=== PATIENT | male | born 1995 | race African-American/Black ===

== ENCOUNTER → 2019-02-04 | Outpatient (REF) | payer OTHER ==
[2019-02-04 16:32] LABS: BASO % 0.5 % (0.0-1.0); EOS # 0.1 10^3/uL (0.0-0.5); HEMATOCRIT 47.6 % (42.0-52.0); HEMOGLOBIN 15.4 g/dl (13.5-17.5); LYMPH # 1.4 10^3/uL (1.5-5.0); LYMPH % 23.9 % (24.0-44.0); MEAN CORPUSCULAR HEMOGLOBIN 29.4 pg (27.0-33.0); MEAN CORPUSCULAR HGB CONC 32.4 g/dl (32.0-36.5); MONO # 0.5 10^3/uL (0.0-0.8); MONO % 8.6 % (0.0-5.0); NEUTROPHILS # 3.8 10^3/uL (1.5-8.5); NEUTROPHILS % 64.8 % (36.0-66.0); PLATELET COUNT, AUTOMATED 316 10^3/uL (150-450); RED BLOOD COUNT 5.23 10^6/uL (4.30-6.10); WHITE BLOOD COUNT 5.9 10^3/uL (4.0-10.0)
[2019-02-04 16:47] LABS: ALBUMIN 4.3 GM/DL (3.2-5.2); ALT/SGPT 51 U/L (12-78); BILIRUBIN,TOTAL 0.4 MG/DL (0.2-1.0); BLOOD UREA NITROGEN 13 MG/DL (7-18); CALCIUM LEVEL 9.4 MG/DL (8.5-10.1); CARBON DIOXIDE LEVEL 30 MEQ/L (21-32); CHLORIDE LEVEL 102 MEQ/L (98-107); CHOLESTEROL LEVEL 173 MG/DL (<200); CHOLESTEROL RISK RATIO 2.621 (<5); CREATININE FOR GFR 1.02 MG/DL (0.70-1.30); GLOMERULAR FILTRATION RATE > 60.0 (>60); GLUCOSE, FASTING 94 MG/DL (70-100); HDL CHOLESTEROL 66 MG/DL (>40); LDL CHOLESTEROL 95 MG/DL (<100); NON-HDL-C 107 MG/DL; POTASSIUM SERUM 4.7 MEQ/L (3.5-5.1); PROLACTIN 15.1 NG/ML (2.1-17.7); SODIUM LEVEL 139 MEQ/L (136-145); TOTAL PROTEIN 8.1 GM/DL (6.4-8.2); TRIGLYCERIDES LEVEL 60 MG/DL (<150)
== END ==
LOC: M SFHCLERA 10:47
PROVIDERS: ATTEND Family Medicine
DX: N52.9 Male erectile dysfunction, unspecified (principal)

== ENCOUNTER → 2019-03-25 | Outpatient (CLI) | payer BC, OTHER, MEDICAID ==
--- NOTE | 2019-03-25 11:03 | REP ---
Left hand four views : There is no fracture or dislocation. Mineralization and joint spaces are normal. There are no calcifications or foreign bodies. Impression: Negative left hand . Electronically Signed by Chris Burt MD 03/25/2019 10:54 A
== END ==
LOC: M LRY 10:37
PROVIDERS: ATTEND Family Medicine
DX: M79.642 Pain in left hand (principal)

== ENCOUNTER → 2019-05-30 | Outpatient (CLI) | payer OTHER ==
--- NOTE | 2019-05-30 13:02 | ECHO ---
OUTPATIENT ECHOCARDIOGRAPHIC REPORT: DATE OF PROCEDURE: 05/30/2019 DATE OF : 1995 AGE: 24 GENDER: Male HEIGHT: 67 inches WEIGHT: 158 pounds BODY SURFACE AREA: 1.83 m2 OUTPATIENT: REFERRING PHYSICIAN: Loretta Oneil INDICATION: Hypertension. MEASUREMENTS: 2-D Measurements: RV: 4.1 cm LV: 4.3 cm Septum: 1.1 cm Posterior wall: 1.1 cm Aortic root: 2.6 cm LA: 3.2 cm LVEF: 65% Doppler Measurements: AV: 1.13 m/sec LVOT: 0.87 m/sec LVOT diameter: 1.8 cm MV - E: 82, A: 41, EA ratio: 2 Early mitral deceleration time: 148 ms E prime medial: 12.3, A prime medial: 6.3, E prime lateral: 15.6 Average E/E prime ratio: 5.9/PCWP - 9.2 mmHg PV: 0.8 m/sec Pulmonary artery acceleration time: 140 ms RVSP: 23 mmHg IVC: 1.6 cm COMMENTS: Normal sinus rhythm without intraventricular conduction disturbance. M-mode and two-dimensional echocardiography was performed with pulsed, continuous wave, color flow and tissue Doppler studies. Normal left ventricular size, wall thickness and wall motion. Normal left atrial size and Doppler assessment of LV diastolic function and estimated mean left atrial pressure. Normal right heart chamber sizes and motion and estimated pulmonary arterial pressure. Normal IVC size against an elevated central venous pressure. Normal appearing and functioning valvular structures. Normal aortic root size. No apparent intracardiac mass or pericardial effusion. (Requesting a stat study for hypertension in the absence of other cardiovascular signs or symptoms is inappropriate especially with the normal findings described above). MTDD
== END ==
LOC: M CARPUL 10:07
PROVIDERS: ATTEND Family Medicine
DX: I10 Essential (primary) hypertension (principal)

== ENCOUNTER → 2019-06-09 | Outpatient (CLI) | payer OTHER ==
[~2019-06-09] MED LIST: PROHANCE 279.3MG/ML 15ML VIAL (A9576) As Ordered ONE
--- NOTE | 2019-06-09 14:06 | REP ---
MRI BRAIN WITH AND WITHOUT CONTRAST: TECHNIQUE: Multiple sequences obtained in the sagittal and axial planes prior to and following the intravenous administration of 14 mL ProHance. There are no prior studies. Ventricles are normal in size and position with no midline shift or mass effect. Thomas-white differentiation is well-maintained. No abnormal signal is seen in the brain, brain stem or cerebellum. No abnormal white matter signal intensity is seen. Corpus callosum appears unremarkable. 7th and 8th cranial nerve complexes are unremarkable. There is no abnormal enhancement in the brain. Globes are intact. Visualized paranasal sinuses demonstrate no abnormal signal. IMPRESSION: Negative MRI brain with and without contrast. Electronically Signed by Chris Thomas MD 06/09/2019 03:21 P
== END ==
LOC: M RAD 11:07
PROVIDERS: ATTEND Family Medicine
DX: G62.9 Polyneuropathy, unspecified (principal)
CPT/HCPCS: 70553; A9576

== ENCOUNTER → 2019-07-03 | Outpatient (REF) | payer OTHER, MEDICAID ==
[2019-07-03 16:34] LABS: ALBUMIN 4.5 GM/DL (3.2-5.2); ALT/SGPT 33 U/L (12-78); BILIRUBIN,TOTAL 0.4 MG/DL (0.2-1.0); BLOOD UREA NITROGEN 16 MG/DL (7-18); CARBON DIOXIDE LEVEL 25 MEQ/L (21-32); CHLORIDE LEVEL 101 MEQ/L (98-107); CREATININE FOR GFR 1.27 MG/DL (0.70-1.30); GLOMERULAR FILTRATION RATE > 60.0 (>60); GLUCOSE, FASTING 102 MG/DL (70-100); POTASSIUM SERUM 3.7 MEQ/L (3.5-5.1); SODIUM LEVEL 138 MEQ/L (136-145); THYROID STIMULATING HORMONE 0.667 uIU/ML (0.358-3.740); TOTAL PROTEIN 8.1 GM/DL (6.4-8.2)
[2019-07-03 16:40] LABS: FOLATE 13.9 NG/ML; VITAMIN B12 LEVEL 333 PG/ML
[2019-07-03 17:09] LABS: APPEARANCE, URINE HAZY (CLEAR); BACTERIA, URINE AUTO NEGATIVE (NEGATIVE); BILIRUBIN, URINE AUTO NEGATIVE (NEGATIVE); BLOOD, URINE BLOOD NEGATIVE (NEGATIVE); COLOR, URINE YELLOW (YELLOW); GLUCOSE, URINE (UA) AUTO NEGATIVE (NEGATIVE); KETONE, URINE AUTO TRACE mg/dL (NEGATIVE); LEUKOCYTE ESTERASE, URINE AUTO NEGATIVE (NEGATIVE); MUCUS, URINE SMALL (NEGATIVE); NITRITE, URINE AUTO NEGATIVE (NEGATIVE); PROTEIN, URINE AUTO 2+ mg/dL (NEGATIVE); RBC, URINE AUTO 0 /HPF (0-3); SPECIFIC GRAVITY URINE AUTO 1.026 (1.002-1.035); SQUAMOUS EPITHELIAL CELL UR AU 0 /HPF (0-6); UROBILINOGEN, URINE AUTO 0.2 mg/dL (0.0-2.0); WBC, URINE AUTO 3 /HPF (0-3)
[2019-07-04 11:34] LABS: HIV 1&2 SCREEN CENTAUR NEGATIVE (NEGATIVE)
[2019-07-06 00:06] LABS: ANA (HEP2) Negative (.); Lyme Disease IgG/IgM Antibodie <0.91 ISR (0.00-0.90); Lyme Disease IgM Ab Quantitati <0.80 index (0.00-0.79)
== END ==
LOC: M SFHCLERA 11:14
PROVIDERS: ATTEND Family Medicine
DX: G62.9 Polyneuropathy, unspecified (principal); I10 Essential (primary) hypertension

== ENCOUNTER → 2019-07-10 | Outpatient (REF) | payer OTHER, MEDICAID ==
[2019-07-10 19:59] LABS: PROTEIN, URINE AUTO NEGATIVE (NEGATIVE)
== END ==
LOC: M SFHCLERA 12:18
PROVIDERS: ATTEND Family Medicine
DX: R80.9 Proteinuria, unspecified (principal)

== ENCOUNTER → 2019-10-02 | Outpatient (REF) | payer MEDICAID, OTHER ==
[2019-11-17 14:09] LABS: BLOOD UREA NITROGEN 14 MG/DL (7-18); CALCIUM LEVEL 9.4 MG/DL (8.5-10.1); CARBON DIOXIDE LEVEL 31 MEQ/L (21-32); CHLORIDE LEVEL 102 MEQ/L (98-107); CREATININE FOR GFR 1.09 MG/DL (0.70-1.30); GLOMERULAR FILTRATION RATE > 60.0 (>60); GLUCOSE, FASTING 84 MG/DL (70-100); POTASSIUM SERUM 3.9 MEQ/L (3.5-5.1); SODIUM LEVEL 138 MEQ/L (136-145)
== END ==
LOC: M SFHCLERA 06:44
PROVIDERS: ATTEND Family Medicine
DX: I10 Essential (primary) hypertension (principal)

== ENCOUNTER 2020-02-25 00:51 | Emergency (ER) | payer OTHER, MEDICAID ==
[~2020-02-25] VITALS: Ht 170.2 cm; Wt 78.8 kg
[2020-02-25] MEDS ORDERED: CHLO125TA (01:04)
[2020-02-25] MEDS ORDERED: SILD100T7 (01:04)
--- NOTE | 2020-02-25 02:38 | REPVR ---
PROCEDURE INFORMATION: Exam: XR Chest, 2 Views Exam date and time: 02/25/2020 1:58 AM Age: 24 years old Clinical indication: Other: Chest pain TECHNIQUE: Imaging protocol: XR of the chest Views: 2 views. COMPARISON: No relevant prior studies available. FINDINGS: Lungs: Unremarkable. No consolidation. Pleural space: Unremarkable. No pleural effusion. No pneumothorax. Heart/Mediastinum: Unremarkable. No cardiomegaly. Bones/joints: Unremarkable. IMPRESSION: Negative chest. Electronically signed by: Mike Hidalgo On 02/25/2020 02:38:44 AM
[2020-02-25 03:12] LABS: BASO % 0.3 % (0.0-1.0); EOS # 0.1 10^3/uL (0.0-0.5); HEMATOCRIT 45.9 % (42.0-52.0); HEMOGLOBIN 14.9 g/dl (13.5-17.5); LYMPH # 0.8 10^3/uL (1.5-5.0); LYMPH % 8.8 % (24.0-44.0); MEAN CORPUSCULAR HEMOGLOBIN 28.4 pg (27.0-33.0); MEAN CORPUSCULAR HGB CONC 32.5 g/dl (32.0-36.5); MEAN CORPUSCULAR VOLUME 87.4 fl (80.0-96.0); MONO # 0.6 10^3/uL (0.0-0.8); MONO % 6.6 % (0.0-5.0); NEUTROPHILS # 7.8 10^3/uL (1.5-8.5); PLATELET COUNT, AUTOMATED 239 10^3/uL (150-450); RED BLOOD COUNT 5.25 10^6/uL (4.30-6.10); WHITE BLOOD COUNT 9.4 10^3/uL (4.0-10.0)
[2020-02-25 03:23] LABS: INR 0.95; PROTHROMBIN TIME 12.9 SECONDS (12.5-14.3)
[2020-02-25 03:24] LABS: PARTIAL THROMBOPLASTIN TIME 27.4 SECONDS (24.2-38.5)
[2020-02-25] MEDS ORDERED: NS 1,000 ML IV ONE (03:30)
[2020-02-25 03:32] LABS: ERYTHROCYTE SEDIMENTATION RATE 28 mm/hr (0-15)
[2020-02-25 03:51] LABS: ALBUMIN 4.5 GM/DL (3.2-5.2); ALT/SGPT 49 U/L (12-78); BILIRUBIN,DIRECT < 0.1 MG/DL (0.0-0.2); BILIRUBIN,TOTAL 0.1 MG/DL (0.2-1.0); BLOOD UREA NITROGEN 14 MG/DL (7-18); C REACTIVE PROTEIN QUANTITATIV 0.92 MG/DL (0.00-0.30); CALCIUM LEVEL 9.6 MG/DL (8.5-10.1); CARBON DIOXIDE LEVEL 26 MEQ/L (21-32); CHLORIDE LEVEL 106 MEQ/L (98-107); CK-MB VALUE MASS 1.3 NG/ML (<3.6); CPK CREATINE PHOSPHOKINASE 184 U/L (39-308); CREATININE FOR GFR 0.98 MG/DL (0.70-1.30); FREE T4 1.11 NG/DL (0.76-1.46); GLOMERULAR FILTRATION RATE > 60.0 (>60); GLUCOSE, FASTING 96 MG/DL (70-100); MB/CK RELATIVE INDEX 0.71 (< OR =4); NT-PRO BNP < 5 PG/ML (<125); POTASSIUM SERUM 3.9 MEQ/L (3.5-5.1); SODIUM LEVEL 138 MEQ/L (136-145); THYROID STIMULATING HORMONE 0.625 uIU/ML (0.358-3.740); TOTAL PROTEIN 8.4 GM/DL (6.4-8.2); TROPONIN I < 0.02 NG/ML (< 0.10)
[2020-02-25 04:22] LABS: AMPHETAMINES LEVEL URINE NEGATIVE (NEGATIVE); BARBITURATES URINE NEGATIVE (NEGATIVE); BENZODIAZEPINES URINE NEGATIVE (NEGATIVE); CANNABINOIDS URINE NEGATIVE (NEGATIVE); COCAINE METABOLITE URINE NEGATIVE (NEGATIVE); METHADONE URINE NEGATIVE (NEGATIVE); OPIATES URINE NEGATIVE (NEGATIVE); PHENCYCLIDINE URINE NEGATIVE (NEGATIVE)
[2020-02-25 06:00] VITALS: BP 151/97
--- NOTE | 2020-02-26 05:18 | ECGEPIP ---
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
== END 2020-02-25 06:14 | disposition home or self-care (01) ==
LOC: M ED 00:51
DX: R00.2 Palpitations (principal); T50.905A Adverse effect of unspecified drugs, medicaments and biological substances, initial encounter; I10 Essential (primary) hypertension; N52.9 Male erectile dysfunction, unspecified; Z79.899 Other long term (current) drug therapy

== ENCOUNTER 2020-03-06 21:37 | Emergency (ER) | payer MEDICAID, OTHER ==
[~2020-03-06] VITALS: Ht 170.2 cm; Wt 76.9 kg
[~2020-03-06 21:37] MED LIST changes: +CHLO125TA; -PROHANCE 279.3MG/ML 15ML VIAL (A9576) As Ordered ONE; +SILD100T7
--- OUTSIDE RECORDS SUMMARY | 2020-03-06 21:48 | CCD ---
Author Author [facility] Address Unknown Phone Unavailable Support Name Relationship Address Phone NADEEM CHRISTY Next Of Kin [address] [place] [address] UE Next Of Kin Unknown Unavailable EUNICE CHRISTY Next Of Kin [address] [place] [address] EUNICE CHRISTY [facility] [address] [place] [address] Unavailable Re-disclosure Warning The records that you are about to access may contain information from federally-assisted alcohol or drug abuse programs. If such information is present, then the following federally mandated warning applies: This information has been disclosed to you from records protected by federal confidentiality rules (42 CFR part 2). The federal rules prohibit you from making any further disclosure of this information unless further disclosure is expressly permitted by the written consent of the person to whom it pertains or as otherwise permitted by 42 CFR part 2. A general authorization for the release of medical or other information is NOT sufficient for this purpose. The Federal rules restrict any use of the information to criminally investigate or prosecute any alcohol or drug abuse patient.The records that you are about to access may contain highly sensitive health information, the redisclosure of which is protected by Article 27-F of the [place] Public [facility] law. If you continue you may have access to information: Regarding HIV / AIDS; Provided by facilities licensed or operated by the [place] Office of Mental Health; or Provided by the [place] Office for People With Developmental Disabilities. If such information is present, then the following [place] mandated warning applies: This information has been disclosed to you from confidential records which are protected by state law. State law prohibits you from making any further disclosure of this information without the specific written consent of the person to whom it pertains, or as otherwise permitted by law. Any unauthorized further disclosure in violation of state law may result in a fine or correction sentence or both. A general authorization for the release of medical or other information is NOT sufficient authorization for further disc losure. Encounters Encounter Providers Location Date Indications Data Source(s ) [place] [address] [facility] [address] 01/27/2020 12:00:00 AM EST [facility]CW1 [facility] [address] [facility] [place] [address] 07/08/2019 12:00:00 AM EDT eCW1 ([facility] [address] [facility] [place] [address] 07/04/2019 12:00:00 AM EDT [facility]CW[facility] [address] [place] [address], [place] [address] 07/03/2019 12:00:00 AM EDT eCW1 ([facility] [address] [facility] [place] [address] 06/26/2019 12:00:00 AM EDT eCW1 ([facility] [address] [facility] [place] [address] 06/10/2019 12:00:00 AM EDT eCW1 ([facility] Outpatient [address] [facility] [place] [address] 05/23/2019 12:00:00 AM EDT eCW1 ([facility] [address] [place] [address], [place] [address] 05/22/2019 12:00:00 AM EDT eCW1 ([facility] [address] [facility] [place] [address] 05/19/2019 12:00:00 AM EDT eCW1 ([facility]) [facility] [address] [facility] [place] [address] 04/15/2019 12:00:00 AM EST eCW1 ([facility]) Outpatient 04/11/2019 04:45:00 AM EST [facility] [address] [facility] [address] 04/01/2019 12:00:00 AM EST eCW1 ([facility]) [facility] [address] [facility] [address] 03/28/2019 12:00:00 AM EST eCW1 ([facility]) [facility] [address] [facility] [address] 03/27/2019 12:00:00 AM EST eCW1 ([facility]) [facility] [address] [facility] [address] 03/27/2019 12:00:00 AM EST eCW1 ([facility]) [facility] [address] [facility] [address] 03/25/2019 12:00:00 AM EST eCW1 ([facility]) [facility] [address] [facility] [address] 02/25/2019 12:00:00 AM EST eCW1 ([facility]) [facility] [address] [facility] [address] 02/25/2019 12:00:00 AM EST eCW1 ([facility]) [facility] [address] [facility] [address] 02/13/2019 12:00:00 AM EST eCW1 ([facility]) [facility] [address] [facility] [address] 02/04/2019 12:00:00 AM EST eCW1 ([facility]) [facility] [address] [facility] [address] 02/04/2019 12:00:00 AM EST eCW1 ([facility]) [facility] [address] [facility] [address] 01/23/2019 12:00:00 AM EST eCW1 ([facility]) Immunizations Vaccine Date Status Description Data Source(s) influenza, recombinant, quadrIvalent,injectable, prese rvative free 01/27/2020 09:27:00 AM EST completed eCW1 ([facility]) influenza, recombinant, quadrIvalent,injectable, prese rvative free 04/01/2019 10:19:00 AM EST completed eCW1 ([facility]) influenza, recombinant, quadrIvalent,injectable, prese rvative free 04/01/2019 10:19:00 AM EST completed eCW1 ([facility]) IIV3. This is one of two codes replacing CVX 15, which is being retired. 02/04/2019 10:10:00 AM EST completed eCW1 ([facility]) Medications Medication Brand Name Start Date Product Form Dose Route Admi nistrative Instructions Pharmacy Instructions Status Indications Reaction Description Data Source(s) Blood Pressure Cuff - Blood Pressure Cuff - 05/20/2019 12:00:00 AM EDT active as directed eCW1 ([facility]) Blood Pressure Cuff - Blood Pressure Cuff - 05/20/2019 12:00:00 AM EDT active Blood Pressure Cuff - eCW1 ( [facility]) Blood Pressure Cuff - Blood Pressure Cuff - 05/20/2019 12:00:00 AM EDT active Blood Pressure Cuff - eCW1 ( [facility]) 200 ACTUAT Albuterol 0.09 MG/ACTUAT Mete red Dose Inhaler [ProAir] ProAir HFA 108 (90 Base) MCG/ACT ProAir HFA 108 (90 Base) MCG/ACT 02/25/2019 12:00:00 AM EST active 1 puff as needed eCW1 ([facility]) 200 ACTUAT Albuterol 0.09 MG/ACTUAT Mete red Dose Inhaler [ProAir] ProAir HFA 108 (90 Base) MCG/ACT ProAir HFA 108 (90 Base) MCG/ACT 02/25/2019 12:00:00 AM EST 1.0 {puff_as_needed} active Pro Air HFA 108 (90 Base) MCG/ACT eCW1 ([facility]) sildenafil 100 MG Oral Tablet Sildenafil Citrate 100 M G Sildenafil Citrate 100 MG 02/25/2019 12:00:00 AM EST active 1 tablet as needed eCW1 ([facility]) 200 ACTUAT Albuterol 0.09 MG/ACTUAT Mete red Dose Inhaler [ProAir] ProAir HFA 108 (90 Base) MCG/ACT ProAir HFA 108 (90 Base) MCG/ACT 02/25/2019 12:00:00 AM EST active 1 puff as needed eCW1 ([facility]) 200 ACTUAT Albuterol 0.09 MG/ACTUAT Mete red Dose Inhaler [ProAir] ProAir HFA 108 (90 Base) MCG/ACT ProAir HFA 108 (90 Base) MCG/ACT 02/25/2019 12:00:00 AM EST active 1 puff as needed eCW1 ([facility]) 200 ACTUAT Albuterol 0.09 MG/ACTUAT Mete red Dose Inhaler [ProAir] ProAir HFA 108 (90 Base) MCG/ACT ProAir HFA 108 (90 Base) MCG/ACT 02/25/2019 12:00:00 AM EST active 1 puff as needed eCW1 ([facility]) 200 ACTUAT Albuterol 0.09 MG/ACTUAT Mete red Dose Inhaler [ProAir] ProAir HFA 108 (90 Base) MCG/ACT ProAir HFA 108 (90 Base) MCG/ACT 02/25/2019 12:00:00 AM EST 1.0 {puff_as_needed} active Pro Air HFA 108 (90 Base) MCG/ACT eCW1 ([facility]) Chlorthalidone 25 MG Oral Tablet Chlorthalidone 25 MG 2018 12:00:00 AM EST active 1 tablet in the m orning with food eCW1 ([facility]) Insurance Providers Payer name Policy type / Coverage type Policy ID Covered democrat ID Covered democrat's relationship to richardson Policy Richardson Plan Information EMEDNY [id number] SP [id number] MYRNA [id number] SP [id number] [employer]CO EPALS [id number] SP [id number] MEDICAID [id number] SP [id number] [place] [id number] SP [id number] MEDICAID M [id number] S [id number] HORIZION [facility] [id number] SP [id number] [facility] [phone] [id number] SP [id number] SELF PAY ONLY OTHER1 [id number] SP [id number] Problems, Conditions, and Diagnoses Code Display Name Description Problem Type Effective Dates Data Source(s) G62.9 [id number] Polyneuropathy Problem 05/23/2019 12:00:00 A M EDT eCW1 ([facility]) G62.9 [id number] Polyneuropathy Problem 05/23/2019 12:00:00 A M EDT eCW1 ([facility]) J32.9 [id number] Sinusitis, unspecified chronicity, unspec ified location Problem 03/25/2019 12:00:00 AM EST eCW1 ([facility]) J32.9 [id number] Sinusitis, unspecified chronicity, unspec ified location Problem 03/25/2019 12:00:00 AM EST eCW1 ([facility]) J45.990 [id number] Exercise-induced asthma Problem 02/25/2019 1 2:00:00 AM EST eCW1 ([facility]) J45.990 [id number] Exercise-induced asthma Problem 02/25/2019 1 2:00:00 AM EST eCW1 ([facility]) F34.1 [id number] Dysthymia Problem 01/23/2019 12:00:00 AM ES T eCW1 ([facility]) F10.10 [id number] Alcohol abuse Problem 01/23/2019 12:00:00 AM EST eCW1 ([facility]) N52.9 [id number] Erectile dysfunction, unspecifie d erectile dysfunction type Problem 01/23/2019 12:00:00 AM EST eCW1 ([facility]) I10 [id number] Hypertension, unspecified type Problem 01/23 12:00:00 AM EST eCW1 ([facility]) F34.1 [id number] Dysthymia Problem 01/23/2019 12:00:00 AM ES T eCW1 ([facility]) F10.10 10656802 Alcohol abuse Problem 01/23/2019 12:00:00 AM EST eCW1 ([facility]) N52.9 [id number] Erectile dysfunction, unspecifie d erectile dysfunction type Problem 01/23/2019 12:00:00 AM EST eCW1 ([facility]) Surgeries/Procedures Procedure Description Date Indications Data Source(s) Immunization: Flublok Quadrivalent (18 years & older) 0.5mL IM (Influenza) 01/27/2020 12:00:00 AM EST eCW1 ([facility]) RIV4 VACC RECOMBINANT DNA IM 04/01/2019 12:00:00 AM ES T eCW1 ([facility]) IMMUNIZATION ADMIN 04/01/2019 12:00:00 AM EST eCW1 ([facility]) Influenza immunization administered or previously received 01/23/2019 12:00:00 AM EST eCW1 ([facility] Results ID Date Data Source [id number] 01/04/2020 12:11:00 PM EST [facility] Name Value Range Interpretation Code Description Data Dora rce(s) Supporting Document(s) SARS coronavirus 2 RNA [facility] This lab was ordered by [facility] and rep orted by [facility]. ID Date Data Source [id number] 12/25/2019 12:00:00 AM EST [facility] Name Value Range Interpretation Code Description Data Dora rce(s) Supporting Document(s) SARS-CoV2 Rapid Antigen [facility] This lab was ordered by [facility] and reported by [facility]. ID Date Data Source ALDOSTERONE/RENIN RATIO 09/05/2019 05:27:35 AM EDT eCW1 ([facility]) Name Value Range Interpretation Code Description Data Dora rce(s) Supporting Document(s) eCW1 ([facility]) eCW1 ([facility]) eCW1 ([facility]) eCW1 ([facility]) ID Date Data Source [id number] 08/18/2019 12:00:00 AM EDT [facility] Name Value Range Interpretation Code Description Data Dora rce(s) Supporting Document(s) SARS coronavirus 2 RNA [Presence] in Res piratory specimen by JAZMINE with probe detection [facility] This lab was ordered by Jung Briscoe and reported by [facility]. ID Date Data Source BLAKE TITER & PATTERN 07/09/2019 12:03:36 PM EDT eCW1 ([facility]) Name Value Range Interpretation Code Description Data Dora rce(s) Supporting Document(s) Negative eCW1 ([facility]) ID Date Data Source LYME DISEASE SCRN WITH CONFIRM 07/06/2019 08:54:20 AM EDT eC W1 ([facility]) Name Value Range Interpretation Code Description Data Dora rce(s) Supporting Document(s) <0.91 eCW1 ([facility]) <0.80 eCW1 ([facility]) ID Date Data Source FREE T4 & TSH PANEL 07/04/2019 01:25:02 PM EDT eCW1 ([facility]) Name Value Range Interpretation Code Description Data Doar rce(s) Supporting Document(s) 1.10 eCW1 ([facility]) 0.667 eCW1 ([facility]) ID Date Data Source Comprehensive Metabolic Profile (CMP) 07/04/2019 01:24:48 PM EDT eCW1 ([facility]) Name Value Range Interpretation Code Description Data Dora rce(s) Supporting Document(s) 16 BLOOD UREA NITROGEN eCW1 ([facility]) 102 GLUCOSE, FASTING eCW1 ([facility]) 138 SODIUM LEVEL eCW1 ([facility]) 3.7 POTASSIUM SERUM eCW1 ([facility]) 101 CHLORIDE LEVEL eCW1 ([facility]) 1.27 CREATININE FOR GFR eCW1 ([facility]) > 60.0 GLOMERULAR FILTRATION RATE eCW 1 ([facility]) 25 CARBON DIOXIDE LEVEL eCW1 ([facility]) 33 ALT/SGPT eCW1 ([facility]) 10.0 CALCIUM LEVEL eCW1 ([facility]) 16 AST/SGOT eCW1 ([facility]) 4.5 ALBUMIN eCW1 ([facility]) 0.4 BILIRUBIN,TOTAL eCW1 ([facility]) 8.1 TOTAL PROTEIN eCW1 ([facility]) 55 ALKALINE PHOSPHATASE eCW1 ([facility]) 1.3 ALBUMIN/GLOBULIN RATIO eCW1 ([facility]) ID Date Data Source VITB12 & FOL 07/04/2019 01:24:29 PM EDT eCW1 ([facility]) Name Value Range Interpretation Code Description Data Dora rce(s) Supporting Document(s) 333 eCW1 ([facility]) 13.9 eCW1 ([facility]) ID Date Data Source [id number] 07/04/2019 01:24:20 PM EDT eCW1 ([facility]) Name Value Range Interpretation Code Description Data Dora rce(s) Supporting Document(s) eCW1 ([facility]) ID Date Data Source SYPHILIS ANTIBODY (RPR SCREEN) 07/04/2019 01:24:10 PM EDT eC W1 ([facility]) Name Value Range Interpretation Code Description Data Dora rce(s) Supporting Document(s) NONREACTIVE eCW1 ([facility]) ID Date Data Source UA URINALYSIS 07/04/2019 09:02:45 AM EDT eCW1 ([facility]) Name Value Range Interpretation Code Description Data Dora rce(s) Supporting Document(s) eCW1 ([facility]) ID Date Data Source [facility] MRI Brain W/O FOLL BY WITH CONTRAST 06/11/2019 03:13:27 AM EDT eCW1 ([facility]) Name Value Range Interpretation Code Description Data Dora rce(s) Supporting Document(s) eCW1 ([facility]) ID Date Data Source TSH 02/04/2019 12:00:00 AM EST eCW1 ([facility]) Name Value Range Interpretation Code Description Data Dora rce(s) Supporting Document(s) 0.520 0.358-3.740 THYROID STIMULATING HORM ONE eCW1 ([facility]) ID Date Data Source PROLACTIN 02/04/2019 12:00:00 AM EST eCW1 ([facility]) Name Value Range Interpretation Code Description Data Dora rce(s) Supporting Document(s) 15.1 2.1-17.7 PROLACTIN eCW1 ([facility]) ID Date Data Source LIPID PANEL (CARDIAC RISK) 02/04/2019 12:00:00 AM EST eCW1 ( [facility]) Name Value Range Interpretation Code Description Data Dora rce(s) Supporting Document(s) Triglyceride [Mass/volume] in Serum or Plasma by calculation 60 <150 TRIGLYCERIDES LEVEL eCW1 ([facility]) Cholesterol in HDL [Moles/volume] in Serum or Plasma 66 >40 HDL CHOLESTEROL eCW1 ([facility]) Cholesterol [Moles/volume] in Serum or Plasma 173 <200 CHOLESTEROL LEVEL eCW1 ([facility]) 107 NON-HDL-C eCW1 ([facility]) Cholesterol in LDL [Mass/volume] in Serum or Plasma by calculation 95 <100 LDL CHOLESTEROL eCW1 ([facility]) 2.621 <5 CHOLESTEROL RISK RATIO eCW1 ([facility]) ID Date Data Source CBC with Differential 02/04/2019 12:00:00 AM EST eCW1 ([facility]) Name Value Range Interpretation Code Description Data Dora rce(s) Supporting Document(s) 5.23 4.30-6.10 RED BLOOD COUNT eCW1 ([facility]) 5.9 4.0-10.0 WHITE BLOOD COUNT eCW1 ([facility]) 15.4 13.5-17.5 HEMOGLOBIN eCW1 ([facility]) 91.0 80.0-96.0 MEAN CORPUSCULAR VOLUME e CW1 ([facility]) 29.4 27.0-33.0 MEAN CORPUSCULAR HEMOGLOB IN eCW1 ([facility]) 32.4 32.0-36.5 MEAN CORPUSCULAR HGB CONC eCW1 ([facility]) 47.6 42.0-52.0 HEMATOCRIT eCW1 ([facility]) 13.3 11.5-14.5 RED CELL DISTRIBUTION WID TH eCW1 ([facility]) 64.8 36.0-66.0 NEUTROPHILS % eCW1 ([facility]) 316 150-450 PLATELET COUNT, AUTOMATED eCW1 ([facility]) 8.6 0.0-5.0 MONO % eCW1 ([facility]) 23.9 24.0-44.0 LYMPH % eCW1 ([facility]) 2.0 0.0-3.0 EOS % eCW1 ([facility]) 0.5 0.0-1.0 BASO % eCW1 ([facility]) 0.5 0.0-0.8 MONO # eCW1 ([facility]) 0.1 0.0-0.5 EOS # eCW1 ([facility]) 1.4 1.5-5.0 LYMPH # eCW1 ([facility]) 3.8 1.5-8.5 NEUTROPHILS # eCW1 ([facility]) 0.0 0.0-0.2 BASO # eCW1 ([facility]) Procedure Social History Code Duration Value Status Description Data Source(s ) Smoking 01/27/2020 12:00:00 AM EST Never Smoker completed Never S moker eCW1 ([facility]) Vital Signs ID Date Data Source UNK Name Value Range Interpretation Code Description Data Source(s) Diastolic blood pressure 65 mm[Hg] 65 mm[Hg] eCW1 ([facility]) Systolic blood pressure 133 mm[Hg] 133 mm[Hg] e CW1 ([facility]) Body temperature 97.1 [degF] 97.1 [degF] eCW1 ( [facility]) Respiratory rate 16 /min 16 /min eCW1 ([facility]) Heart rate 74 /min 74 /min eCW1 ([facility]) Body mass index (BMI) [Ratio] 27.09 kg/m2 27.09 kg/m2 eCW1 ([facility]) Body height 67 [in_i] 67 [in_i] eCW1 ([facility]) Body weight 173 [lb_av] 173 [lb_av] eCW1 ([facility]) Diastolic blood pressure 89 mm[Hg] 89 mm[Hg] eCW1 ([facility]) Systolic blood pressure 139 mm[Hg] 139 mm[Hg] e CW1 ([facility]) Body temperature 98.1 [degF] 98.1 [degF] eCW1 ( [facility]) Respiratory rate 16 /min 16 /min eCW1 ([facility]) Heart rate 80 /min 80 /min eCW1 ([facility]) Body mass index (BMI) [Ratio] 23.96 kg/m2 23.96 kg/m2 eCW1 ([facility]) Body height 67 [in_i] 67 [in_i] eCW1 ([facility]) Body weight 153 [lb_av] 153 [lb_av] eCW1 ([facility]) Diastolic blood pressure 91 mm[Hg] 91 mm[Hg] eCW1 ([facility]) Systolic blood pressure 135 mm[Hg] 135 mm[Hg] e CW1 ([facility]) Body temperature 97.9 [degF] 97.9 [degF] eCW1 ( [facility]) Respiratory rate 16 /min 16 /min eCW1 ([facility]) Heart rate 66 /min 66 /min eCW1 ([facility]) Body mass index (BMI) [Ratio] 23.96 kg/m2 23.96 kg/m2 eCW1 ([facility]) Body height 67 [in_us] 67 [in_us] eCW1 ([facility]) Body weight Measured 153 [lb_av] 153 [lb_av] eC W1 ([facility]) Diastolic blood pressure 97 mm[Hg] 97 mm[Hg] eCW1 ([facility]) Systolic blood pressure 148 mm[Hg] 148 mm[Hg] e CW1 ([facility]) Body temperature 97.9 [degF] 97.9 [degF] eCW1 ( [facility]) Respiratory rate 16 /min 16 /min eCW1 ([facility]) Heart rate 86 /min 86 /min eCW1 ([facility]) Body mass index (BMI) [Ratio] 23.96 kg/m2 23.96 kg/m2 eCW1 ([facility]) Body height 67 [in_us] 67 [in_us] eCW1 ([facility]) Body weight Measured 153 [lb_av] 153 [lb_av] eC W1 ([facility]) Diastolic blood pressure 91 mm[Hg] 91 mm[Hg] eCW1 ([facility]) Systolic blood pressure 153 mm[Hg] 153 mm[Hg] e CW1 ([facility]) Body temperature 98.0 [degF] 98.0 [degF] eCW1 ( [facility]) Respiratory rate 17 /min 17 /min eCW1 ([facility]) Heart rate 75 /min 75 /min eCW1 ([facility]) Body mass index (BMI) [Ratio] 24.27 kg/m2 24.27 kg/m2 eCW1 ([facility]) Body height 67 [in_us] 67 [in_us] eCW1 ([facility]) Body weight Measured 155 [lb_av] 155 [lb_av] eC W1 ([facility]) Diastolic blood pressure 84 mm[Hg] 84 mm[Hg] eCW1 ([facility]) Systolic blood pressure 139 mm[Hg] 139 mm[Hg] e CW1 ([facility]) Body temperature 98.3 [degF] 98.3 [degF] eCW1 ( [facility]) Respiratory rate 16 /min 16 /min eCW1 ([facility]) Heart rate 60 /min 60 /min eCW1 ([facility]) Body mass index (BMI) [Ratio] 24.74 kg/m2 24.74 kg/m2 eCW1 ([facility]) Body height 67 [in_us] 67 [in_us] eCW1 ([facility]) Body weight Measured 158 [lb_av] 158 [lb_av] eC W1 ([facility]) Diastolic blood pressure 84 mm[Hg] 84 mm[Hg] eCW1 ([facility]) Systolic blood pressure 146 mm[Hg] 146 mm[Hg] e CW1 ([facility]) Body temperature 98.5 [degF] 98.5 [degF] eCW1 ( [facility]) Respiratory rate 16 /min 16 /min eCW1 ([facility]) Heart rate 72 /min 72 /min eCW1 ([facility]) Body mass index (BMI) [Ratio] 24.12 kg/m2 24.12 kg/m2 eCW1 ([facility]) Body height 67 [in_us] 67 [in_us] eCW1 ([facility]) Body weight Measured 154 [lb_av] 154 [lb_av] eC W1 ([facility]) Patient Treatment Plan of Care Planned Activity Planned Date Details Description Data Source (s) Blood Pressure Cuff - 05/20/2019 12:00:00 AM EDT [email or web address] (Formerly [facility]) 200 ACTUAT Albuterol 0.09 MG/ACTUAT Metered Dose Inhal er [ProAir] 02/25/2019 12:00:00 AM EST [email or web address] (Formerly [facility]) 200 ACTUAT Albuterol 0.09 MG/ACTUAT Metered Dose Inhal er [ProAir] 02/25/2019 12:00:00 AM EST [email or web address] (Formerly [facility]) 200 ACTUAT Albuterol 0.09 MG/ACTUAT Metered Dose Inhal er [ProAir] 02/25/2019 12:00:00 AM EST [email or web address] (Formerly [facility]) sildenafil 100 MG Oral Tablet 02/25/2019 12:00:00 AM EST [email or web address] (Formerly [facility]) Chlorthalidone 25 MG Oral Tablet 02/04/2019 12:00:00 AM EST [email or web address] (Formerly [facility])
[2020-03-06] MEDS ORDERED: NS 1,000 ML IV ONE (22:15)
--- NOTE | 2020-03-06 22:37 | REPVR ---
PROCEDURE INFORMATION: Exam: XR Complete Acute Abdomen Series Exam date and time: 03/06/2020 10:20 PM Age: 24 years old Clinical indication: Abdominal pain TECHNIQUE: Imaging protocol: XR complete acute abdomen series, including 2 or more views of the abdomen and a single view chest. COMPARISON: CR Chest, 2 view PA, Lat 2020-02-25 02:06 FINDINGS: Lungs: Normal. No consolidation. Pleural space: Normal. No pneumothorax. Heart/Mediastinum: Normal. No cardiomegaly. Gastrointestinal tract: Normal. No bowel dilation. Intraperitoneal space: Normal. No free air. Bones/joints: Normal. No acute fracture. Soft tissues: Normal. IMPRESSION: No acute findings. Electronically signed by: James Chávez On 03/06/2020 22:37:05 PM
[2020-03-06 22:39] LABS: BASO % 0.6 % (0.0-1.0); EOS # 0.1 10^3/uL (0.0-0.5); EOS % 1.1 % (0.0-3.0); HEMATOCRIT 46.2 % (42.0-52.0); HEMOGLOBIN 15.4 g/dl (13.5-17.5); LYMPH % 27.2 % (24.0-44.0); MEAN CORPUSCULAR HGB CONC 33.3 g/dl (32.0-36.5); MONO # 0.6 10^3/uL (0.0-0.8); MONO % 8.4 % (0.0-5.0); NEUTROPHILS # 4.5 10^3/uL (1.5-8.5); NEUTROPHILS % 62.4 % (36.0-66.0); PLATELET COUNT, AUTOMATED 276 10^3/uL (150-450); RED BLOOD COUNT 5.31 10^6/uL (4.30-6.10); WHITE BLOOD COUNT 7.2 10^3/uL (4.0-10.0)
--- NOTE | 2020-03-06 22:42 | REPVR ---
PROCEDURE INFORMATION: Exam: CT Head Without Contrast Exam date and time: 03/06/2020 10:20 PM Age: 24 years old Clinical indication: Pain; Other: Polydipsia; Headache; Migraine; Aura effect not specified; Additional info: Migraines, polydipsia TECHNIQUE: Imaging protocol: Computed tomography of the head without contrast. Radiation optimization: All CT scans at this facility use at least one of these dose optimization techniques: automated exposure control; mA and/or kV adjustment per patient size (includes targeted exams where dose is matched to clinical indication); or iterative reconstruction. COMPARISON: MRI-Brain W/O FOLL BY WITH 2019-06-09 12:25 FINDINGS: Brain: Normal. No hemorrhage. Unremarkable white matter. No mass effect. Cerebral ventricles: No ventriculomegaly. Bones/joints: Unremarkable. No acute fracture. Paranasal sinuses: Visualized sinuses are unremarkable. No fluid levels. Mastoid air cells: Visualized mastoid air cells are well aerated. Soft tissues: Unremarkable. IMPRESSION: No acute intracranial abnormality. Electronically signed by: James Chávez On 03/06/2020 22:42:04 PM
[2020-03-06 22:46] LABS: AMPHETAMINES LEVEL URINE NEGATIVE (NEGATIVE); BARBITURATES URINE NEGATIVE (NEGATIVE); BENZODIAZEPINES URINE NEGATIVE (NEGATIVE); CANNABINOIDS URINE NEGATIVE (NEGATIVE); COCAINE METABOLITE URINE NEGATIVE (NEGATIVE); METHADONE URINE NEGATIVE (NEGATIVE); OPIATES URINE NEGATIVE (NEGATIVE); PHENCYCLIDINE URINE NEGATIVE (NEGATIVE)
--- OUTSIDE RECORDS SUMMARY | 2020-03-06 22:50 | CCD ---
Author Author [facility] Address Unknown Phone Unavailable Support Name Relationship Address Phone NADEEM CHRISTY Next Of Kin [address] [place] [address] UE Next Of Kin Unknown Unavailable EUNICE CHRISTY Next Of Kin [address] [place] [address] EUNICE CHRISTY [facility] [address] [place] [address] Unavailable Re-disclosure Warning The records that you [...] is protected by Article 27-F of the [facility] Public Health law. If you continue you may have access to information: Regarding HIV / AIDS; Provided by facilities licensed or operated by the [facility] Office of Mental Health; or Provided by the [facility] Office for People With Developmental Disabilities. If such information is present, then the following [facility] mandated warning applies: This information has been [...] law may result in a fine or [place] health care facility sentence or both. A general authorization for the release of medical or other information is NOT sufficient authorization for further disc losure. Encounters Encounter Providers Location Date Indications Data Source(s ) Outpatient [address] [facility] [address] 01/27/2020 12:00:00 AM EST [facility]CW[facility] [address] [facility] [place] [address] 07/08/2019 12:00:00 AM EDT [facility]CW1 ([facility] [address] [facility] [place] [address] 07/04/2019 12:00:00 AM EDT [facility] [address] [place] [address], [place] [address] 07/03/2019 12:00:00 AM EDT eCW1 ([facility]) [facility] [address] [facility] [place] [address] 06/26/2019 12:00:00 AM EDT eCW1 ([facility]) [facility] [address] [facility] [place] [address] 06/10/2019 12:00:00 AM EDT eCW1 ([facility]) [place]patient [address] [facility] [place] [address] 05/23/2019 12:00:00 AM EDT eCW1 ([facility]) [facility] [address] [place] [address], [place] [address] 05/22/2019 12:00:00 AM EDT eCW1 ([facility] [address] [facility] [place] [address] 05/19/2019 12:00:00 AM EDT eCW1 ([facility]) [facility] [address] [facility] [place] [address] 04/15/2019 12:00:00 AM EST eCW1 ([facility]) Outpatient 04/11/2019 04:45:00 AM EST [facility] [address] [facility] [address] 04/01/2019 12:00:00 AM EST eCW1 ([facility]) [facility] [address] [facility] [address] 03/28/2019 12:00:00 AM EST eCW1 [facility] [address] [facility] [address] 03/27/2019 12:00:00 AM EST eCW1 ([facility]) [facility] [address] [facility] [address] 03/27/2019 12:00:00 AM EST eCW1 ([facility]) [facility] [address] [facility] [address] 03/25/2019 12:00:00 AM EST eCW1 ([facility]) [facility] [address] [facility] [address] 02/25/2019 12:00:00 AM EST eCW1 ([facility]) [facility] [address] [facility] [address] 02/25/2019 12:00:00 AM EST eCW1 ([facility]) [facility] [address] [facility] [address] 02/13/2019 12:00:00 AM EST eCW1 ([facility]) [facility] [address] [facility] [address] 02/04/2019 12:00:00 AM EST eCW1 ([facility]) [facility] [address] [facility] [address] 02/04/2019 12:00:00 AM EST eCW1 ([facility]) [facility] [address] [facility] [address] 01/23/2019 12:00:00 AM EST eCW1 ([facility]) Immunizations Vaccine Date Status Description Data Source(s) influenza, recombinant, quadrIvalent,injectable, prese rvative free 01/27/2020 09:27:00 AM EST completed eCW1 ([facility]) influenza, recombinant, quadrIvalent,injectable, prese rvative free 04/01/2019 10:19:00 AM EST completed eCW1 ([facility]) influenza, recombinant, quadrIvalent,injectable, prese rvative free 04/01/2019 10:19:00 AM EST completed eCW1 ([facility]) IIV3. This is one of two codes replacing CVX 15, which is being retired. 02/04/2019 10:10:00 AM EST completed eCW1 ([facility]) Medications Medication Brand Name Start Date Product Form Dose Route Admi nistrative Instructions Pharmacy Instructions Status Indications Reaction Description Data Source(s) Blood Pressure Cuff - Blood Pressure Cuff - 05/20/2019 12:00:00 AM EDT active as directed eCW1 ([facility]) Blood Pressure Cuff - Blood Pressure Cuff - 05/20/2019 12:00:00 AM EDT active Blood Pressure Cuff - eCW1 ( [facility]) Blood Pressure Cuff - Blood Pressure Cuff - 05/20/2019 12:00:00 AM EDT active Blood Pressure Cuff - eCW1 ( [facility]) 200 ACTUAT Albuterol 0.09 MG/ACTUAT Mete red Dose Inhaler [ProAir] ProAir HFA 108 (90 Base) MCG/ACT ProAir HFA 108 (90 Base) MCG/ACT 02/25/2019 12:00:00 AM EST active 1 puff as needed eCW1 ([facility]) 200 ACTUAT Albuterol 0.09 MG/ACTUAT Mete red Dose Inhaler [ProAir] ProAir HFA 108 (90 Base) MCG/ACT ProAir HFA 108 (90 Base) MCG/ACT 02/25/2019 12:00:00 AM EST 1.0 {puff_as_needed} active Pro Air HFA 108 (90 Base) MCG/ACT eCW1 ([facility]) sildenafil 100 MG Oral Tablet Sildenafil Citrate 100 M G Sildenafil Citrate 100 MG 02/25/2019 12:00:00 AM EST active 1 tablet as needed eCW1 ([facility]) 200 ACTUAT Albuterol 0.09 MG/ACTUAT Mete red Dose Inhaler [ProAir] ProAir HFA 108 (90 Base) MCG/ACT ProAir HFA 108 (90 Base) MCG/ACT 02/25/2019 12:00:00 AM EST active 1 puff as needed eCW1 ([facility]) 200 ACTUAT Albuterol 0.09 MG/ACTUAT Mete red Dose Inhaler [ProAir] ProAir HFA 108 (90 Base) MCG/ACT ProAir HFA 108 (90 Base) MCG/ACT 02/25/2019 12:00:00 AM EST active 1 puff as needed eCW1 ([facility]) 200 ACTUAT Albuterol 0.09 MG/ACTUAT Mete red Dose Inhaler [ProAir] ProAir HFA 108 (90 Base) MCG/ACT ProAir HFA 108 (90 Base) MCG/ACT 02/25/2019 12:00:00 AM EST active 1 puff as needed eCW1 ([facility]) 200 ACTUAT Albuterol 0.09 MG/ACTUAT Mete red Dose Inhaler [ProAir] ProAir HFA 108 (90 Base) MCG/ACT ProAir HFA 108 (90 Base) MCG/ACT 02/25/2019 12:00:00 AM EST 1.0 {puff_as_needed} active Pro Air HFA 108 (90 Base) MCG/ACT eCW1 ([facility]) Chlorthalidone 25 MG Oral Tablet Chlorthalidone 25 MG 2018 12:00:00 AM EST active 1 tablet in the m orning with food eCW1 ([facility]) Insurance Providers Payer name Policy type / Coverage type Policy ID Covered alliance party ID Covered alliance party's relationship to richardson Policy Richardson Plan Information MYRNA [id number] SP [id number] [id number] SP [id number] NCO EPALS [id number] SP [id number] MEDICAID [id number] SP [id number] [place] P[place] [id number] SP [id number] MEDICAID M [id number] HORIZION [facility] [id number] SP [id number] [facility] [phone] [id number] SP [id number] SELF PAY ONLY OTHER1 [id number] SP [id number] Problems, Conditions, and Diagnoses Code Display Name Description Problem Type Effective Dates Data Source(s) G62.9 [id number] Polyneuropathy Problem 05/23/2019 12:00:00 A M EDT eCW1 ([facility]) G62.9 [id number] Polyneuropathy Problem 05/23/2019 12:00:00 A M EDT eCW1 ([facility]) J32.9 [id number] Sinusitis, unspecified chronicity, unspec ified location Problem 03/25/2019 12:00:00 AM EST eCW1 ([facility]) J32.9 [id number] Sinusitis, unspecified chronicity, unspec ified location Problem 03/25/2019 12:00:00 AM EST eCW1 ([facility]) J45.990 [id number] Exercise-induced asthma Problem 02/25/2019 1 2:00:00 AM EST eCW1 ([facility]) J45.990 [id number] Exercise-induced asthma Problem 02/25/2019 1 2:00:00 AM EST eCW1 ([facility]) F34.1 [id number] Dysthymia Problem 01/23/2019 12:00:00 AM ES T eCW1 ([facility]) F10.10 [id number] Alcohol abuse Problem 01/23/2019 12:00:00 AM EST eCW1 ([facility]) N52.9 [id number] Erectile dysfunction, unspecifie d erectile dysfunction type Problem 01/23/2019 12:00:00 AM EST eCW1 ([facility]) I10 [id number] Hypertension, unspecified type Problem 01/23 12:00:00 AM EST eCW1 ([facility]) F34.1 [id number] Dysthymia Problem 01/23/2019 12:00:00 AM ES T eCW1 ([facility]) F10.10 [id number] Alcohol abuse Problem 01/23/2019 12:00:00 AM EST eCW1 ([facility]) N52.9 [id number] Erectile dysfunction, unspecifie d erectile dysfunction type Problem 01/23/2019 12:00:00 AM EST eCW1 ([facility]) Surgeries/Procedures Procedure Description Date Indications Data Source(s) Immunization: Flublok Quadrivalent (18 years & older) 0.5mL IM (Influenza) 01/27/2020 12:00:00 AM EST eCW1 ([facility]) RIV4 VACC RECOMBINANT DNA IM 04/01/2019 12:00:00 AM ES T eCW1 ([facility]) IMMUNIZATION ADMIN 04/01/2019 12:00:00 AM EST eCW1 ([facility]) Influenza immunization administered or previously received 01/23/2019 12:00:00 AM EST eCW1 ([facility]) Results ID Date Data Source [id number] 01/04/2020 12:11:00 PM EST [facility] Name Value Range Interpretation Code Description Data Dora rce(s) Supporting Document(s) SARS coronavirus 2 RNA [facility] This lab was ordered by [facility] and rep orted by [facility]. ID Date Data Source [id number] 12/25/2019 12:00:00 AM EST [facility] Name Value Range Interpretation Code Description Data Dora rce(s) Supporting Document(s) SARS-CoV2 Rapid Antigen [facility] This lab was ordered by [facility] and reported by [facility]. ID Date Data Source ALDOSTERONE/RENIN RATIO 09/05/2019 05:27:35 AM EDT eCW1 ([facility]) Name Value Range Interpretation Code Description Data Dora rce(s) Supporting Document(s) eCW1 ([facility]) eCW1 ([facility]) eCW1 ([facility]) eCW1 ([facility]) ID Date Data Source [id number] 08/18/2019 12:00:00 AM EDT [facility] Name Value Range Interpretation Code Description Data Dora rce(s) Supporting Document(s) SARS coronavirus 2 RNA [Presence] in Res piratory specimen by JAZMINE with probe detection [facility] This lab was ordered by [facility] and reported by [employer]. ID Date Data Source BLAKE TITER & PATTERN 07/09/2019 12:03:36 PM EDT eCW1 ([facility]) Name Value Range Interpretation Code Description Data Dora rce(s) Supporting Document(s) Negative eCW1 ([facility]) ID Date Data Source LYME DISEASE SCRN WITH CONFIRM 07/06/2019 08:54:20 AM EDT eC W1 ([facility]) Name Value Range Interpretation Code Description Data Dora rce(s) Supporting Document(s) <0.91 eCW1 ([facility]) <0.80 eCW1 ([facility]) ID Date Data Source FREE T4 & TSH PANEL 07/04/2019 01:25:02 PM EDT eCW1 ([facility]) Name Value Range Interpretation Code Description Data Dora rce(s) Supporting Document(s) 1.10 eCW1 ([facility]) 0.667 eCW1 ([facility]) ID Date Data Source Comprehensive Metabolic Profile (CMP) 07/04/2019 01:24:48 PM EDT eCW1 ([facility]) Name Value Range Interpretation Code Description Data Dora rce(s) Supporting Document(s) 16 BLOOD UREA NITROGEN eCW1 ([facility]) 102 GLUCOSE, FASTING eCW1 ([facility]) 138 SODIUM LEVEL eCW1 ([facility]) 3.7 POTASSIUM SERUM eCW1 ([facility]) 101 CHLORIDE LEVEL eCW1 ([facility]) 1.27 CREATININE FOR GFR eCW1 ([facility]) > 60.0 GLOMERULAR FILTRATION RATE eCW 1 ([facility]) 25 CARBON DIOXIDE LEVEL eCW1 ([facility]) 33 ALT/SGPT eCW1 ([facility]) 10.0 CALCIUM LEVEL eCW1 ([facility]) 16 AST/SGOT eCW1 ([facility]) 4.5 ALBUMIN eCW1 ([facility]) 0.4 BILIRUBIN,TOTAL eCW1 ([facility]) 8.1 TOTAL PROTEIN eCW1 ([facility]) 55 ALKALINE PHOSPHATASE eCW1 ([facility]) 1.3 ALBUMIN/GLOBULIN RATIO eCW1 ([facility]) ID Date Data Source VITB12 & FOL 07/04/2019 01:24:29 PM EDT eCW1 ([facility]) Name Value Range Interpretation Code Description Data Dora rce(s) Supporting Document(s) 333 eCW1 ([facility]) 13.9 eCW1 ([facility]) ID Date Data Source [id number] 07/04/2019 01:24:20 PM EDT eCW1 ([facility]) Name Value Range Interpretation Code Description Data Dora rce(s) Supporting Document(s) eCW1 ([facility]) ID Date Data Source SYPHILIS ANTIBODY (RPR SCREEN) 07/04/2019 01:24:10 PM EDT eC W1 ([facility]) Name Value Range Interpretation Code Description Data Dora rce(s) Supporting Document(s) NONREACTIVE eCW1 ([facility]) ID Date Data Source UA URINALYSIS 07/04/2019 09:02:45 AM EDT eCW1 ([facility]) Name Value Range Interpretation Code Description Data Dora rce(s) Supporting Document(s) eCW1 ([facility]) ID Date Data Source [facility] MRI Brain W/O FOLL BY WITH CONTRAST 06/11/2019 03:13:27 AM EDT eCW1 ([facility]) Name Value Range Interpretation Code Description Data Dora rce(s) Supporting Document(s) eCW1 ([facility]) ID Date Data Source TSH 02/04/2019 12:00:00 AM EST eCW1 ([facility]) Name Value Range Interpretation Code Description Data Dora rce(s) Supporting Document(s) 0.520 0.358-3.740 THYROID STIMULATING HORM ONE eCW1 ([facility]) ID Date Data Source PROLACTIN 02/04/2019 12:00:00 AM EST eCW1 ([facility]) Name Value Range Interpretation Code Description Data Dora rce(s) Supporting Document(s) 15.1 2.1-17.7 PROLACTIN eCW1 ([facility]) ID Date Data Source LIPID PANEL (CARDIAC RISK) 02/04/2019 12:00:00 AM EST eCW1 ( [facility]) Name Value Range Interpretation Code Description Data Dora rce(s) Supporting Document(s) Triglyceride [Mass/volume] in Serum or Plasma by calculation 60 <150 TRIGLYCERIDES LEVEL eCW1 ([facility]) Cholesterol in HDL [Moles/volume] in Serum or Plasma 66 >40 HDL CHOLESTEROL eCW1 ([facility]) Cholesterol [Moles/volume] in Serum or Plasma 173 <200 CHOLESTEROL LEVEL eCW1 ([facility]) 107 NON-HDL-C eCW1 ([facility]) Cholesterol in LDL [Mass/volume] in Serum or Plasma by calculation 95 <100 LDL CHOLESTEROL eCW1 ([facility]) 2.621 <5 CHOLESTEROL RISK RATIO eCW1 ([facility]) ID Date Data Source CBC with Differential 02/04/2019 12:00:00 AM EST eCW1 ([facility]) Name Value Range Interpretation Code Description Data Dora rce(s) Supporting Document(s) 5.23 4.30-6.10 RED BLOOD COUNT eCW1 ([facility]) 5.9 4.0-10.0 WHITE BLOOD COUNT eCW1 ([facility]) 15.4 13.5-17.5 HEMOGLOBIN eCW1 ([facility]) 91.0 80.0-96.0 MEAN CORPUSCULAR VOLUME e CW1 ([facility]) 29.4 27.0-33.0 MEAN CORPUSCULAR HEMOGLOB IN eCW1 ([facility]) 32.4 32.0-36.5 MEAN CORPUSCULAR HGB CONC eCW1 ([facility]) 47.6 42.0-52.0 HEMATOCRIT eCW1 ([facility]) 13.3 11.5-14.5 RED CELL DISTRIBUTION WID TH eCW1 ([facility]) 64.8 36.0-66.0 NEUTROPHILS % eCW1 ([facility]) 316 150-450 PLATELET COUNT, AUTOMATED eCW1 ([facility]) 8.6 0.0-5.0 MONO % eCW1 ([facility]) 23.9 24.0-44.0 LYMPH % eCW1 ([facility]) 2.0 0.0-3.0 EOS % eCW1 ([facility]) 0.5 0.0-1.0 BASO % eCW1 ([facility]) 0.5 0.0-0.8 MONO # eCW1 ([facility]) 0.1 0.0-0.5 EOS # eCW1 ([facility]) 1.4 1.5-5.0 LYMPH # eCW1 ([facility]) 3.8 1.5-8.5 NEUTROPHILS # eCW1 ([facility]) 0.0 0.0-0.2 BASO # eCW1 ([facility]) Procedure Social History Code Duration Value Status Description Data Source(s ) Smoking 01/27/2020 12:00:00 AM EST Never Smoker completed Never S moker eCW1 ([facility]) Vital Signs ID Date Data Source UNK Name Value Range Interpretation Code Description Data Source(s) Diastolic blood pressure 65 mm[Hg] 65 mm[Hg] eCW1 ([facility]) Systolic blood pressure 133 mm[Hg] 133 mm[Hg] e CW1 ([facility]) Body temperature 97.1 [degF] 97.1 [degF] eCW1 ( [facility]) Respiratory rate 16 /min 16 /min eCW1 ([facility]) Heart rate 74 /min 74 /min eCW1 ([facility]) Body mass index (BMI) [Ratio] 27.09 kg/m2 27.09 kg/m2 eCW1 ([facility]) Body height 67 [in_i] 67 [in_i] eCW1 ([facility]) Body weight 173 [lb_av] 173 [lb_av] eCW1 ([facility]) Diastolic blood pressure 89 mm[Hg] 89 mm[Hg] eCW1 ([facility]) Systolic blood pressure 139 mm[Hg] 139 mm[Hg] e CW1 ([facility]) Body temperature 98.1 [degF] 98.1 [degF] eCW1 ( [facility]) Respiratory rate 16 /min 16 /min eCW1 ([facility]) Heart rate 80 /min 80 /min eCW1 ([facility]) Body mass index (BMI) [Ratio] 23.96 kg/m2 23.96 kg/m2 eCW1 ([facility]) Body height 67 [in_i] 67 [in_i] eCW1 ([facility]) Body weight 153 [lb_av] 153 [lb_av] eCW1 ([facility]) Diastolic blood pressure 91 mm[Hg] 91 mm[Hg] eCW1 ([facility]) Systolic blood pressure 135 mm[Hg] 135 mm[Hg] e CW1 ([facility]) Body temperature 97.9 [degF] 97.9 [degF] eCW1 ( [facility]) Respiratory rate 16 /min 16 /min eCW1 ([facility]) Heart rate 66 /min 66 /min eCW1 ([facility]) Body mass index (BMI) [Ratio] 23.96 kg/m2 23.96 kg/m2 eCW1 ([facility]) Body height 67 [in_us] 67 [in_us] eCW1 ([facility]) Body weight Measured 153 [lb_av] 153 [lb_av] eC W1 ([facility]) Diastolic blood pressure 97 mm[Hg] 97 mm[Hg] eCW1 ([facility]) Systolic blood pressure 148 mm[Hg] 148 mm[Hg] e CW1 ([facility]) Body temperature 97.9 [degF] 97.9 [degF] eCW1 ( [facility]) Respiratory rate 16 /min 16 /min eCW1 ([facility]) Heart rate 86 /min 86 /min eCW1 ([facility]) Body mass index (BMI) [Ratio] 23.96 kg/m2 23.96 kg/m2 eCW1 ([facility]) Body height 67 [in_us] 67 [in_us] eCW1 ([facility]) Body weight Measured 153 [lb_av] 153 [lb_av] eC W1 ([facility]) Diastolic blood pressure 91 mm[Hg] 91 mm[Hg] eCW1 ([facility]) Systolic blood pressure 153 mm[Hg] 153 mm[Hg] e CW1 ([facility]) Body temperature 98.0 [degF] 98.0 [degF] eCW1 ( [facility]) Respiratory rate 17 /min 17 /min eCW1 ([facility]) Heart rate 75 /min 75 /min eCW1 ([facility]) Body mass index (BMI) [Ratio] 24.27 kg/m2 24.27 kg/m2 eCW1 ([facility]) Body height 67 [in_us] 67 [in_us] eCW1 ([facility]) Body weight Measured 155 [lb_av] 155 [lb_av] eC W1 ([facility]) Diastolic blood pressure 84 mm[Hg] 84 mm[Hg] eCW1 ([facility]) Systolic blood pressure 139 mm[Hg] 139 mm[Hg] e CW1 ([facility]) Body temperature 98.3 [degF] 98.3 [degF] eCW1 ( [facility]) Respiratory rate 16 /min 16 /min eCW1 ([facility]) Heart rate 60 /min 60 /min eCW1 ([facility]) Body mass index (BMI) [Ratio] 24.74 kg/m2 24.74 kg/m2 eCW1 ([facility]) Body height 67 [in_us] 67 [in_us] eCW1 ([facility]) Body weight Measured 158 [lb_av] 158 [lb_av] eC W1 ([facility]) Diastolic blood pressure 84 mm[Hg] 84 mm[Hg] eCW1 ([facility]) Systolic blood pressure 146 mm[Hg] 146 mm[Hg] e CW1 ([facility]) Body temperature 98.5 [degF] 98.5 [degF] eCW1 ( [facility]) Respiratory rate 16 /min 16 /min eCW1 ([facility]) Heart rate 72 /min 72 /min eCW1 ([facility]) Body mass index (BMI) [Ratio] 24.12 kg/m2 24.12 kg/m2 eCW1 ([facility]) Body height 67 [in_us] 67 [in_us] eCW1 ([facility]) Body weight Measured 154 [lb_av] 154 [lb_av] eC W1 ([facility]) Patient Treatment Plan of Care Planned Activity Planned Date Details Description Data Source (s) Blood Pressure Cuff - 05/20/2019 12:00:00 AM EDT eCW1 ([facility]) 200 ACTUAT Albuterol 0.09 MG/ACTUAT Metered Dose Inhal er [ProAir] 02/25/2019 12:00:00 AM EST eCW1 ([facility]) 200 ACTUAT Albuterol 0.09 MG/ACTUAT Metered Dose Inhal er [ProAir] 02/25/2019 12:00:00 AM EST eCW1 ([facility]) 200 ACTUAT Albuterol 0.09 MG/ACTUAT Metered Dose Inhal er [ProAir] 02/25/2019 12:00:00 AM EST eCW1 ([facility]) sildenafil 100 MG Oral Tablet 02/25/2019 12:00:00 AM EST eCW1 ([facility]) Chlorthalidone 25 MG Oral Tablet 02/04/2019 12:00:00 AM EST eCW1 ([facility])
[2020-03-06 23:18] LABS: ALBUMIN 4.5 GM/DL (3.2-5.2); ALT/SGPT 35 U/L (12-78); BILIRUBIN,DIRECT 0.1 MG/DL (0.0-0.2); BILIRUBIN,TOTAL 0.2 MG/DL (0.2-1.0); CK-MB VALUE MASS < 1.0 NG/ML (<3.6); CPK CREATINE PHOSPHOKINASE 219 U/L (39-308); ETHYL ALCOHOL (ETHANOL) < 0.003 % (0.000-0.010); LIPASE 136 U/L (73-393); MAGNESIUM LEVEL 2.1 MG/DL (1.8-2.4); MB/CK RELATIVE INDEX 0.46 (< OR =4); TOTAL PROTEIN 8.5 GM/DL (6.4-8.2); TROPONIN I < 0.02 NG/ML (< 0.10)
[2020-03-06 23:29] VITALS: BP 135/72
== END 2020-03-07 00:07 | disposition home or self-care (01) ==
LOC: M ED 21:37
DX: R10.84 Generalized abdominal pain (principal); R25.2 Cramp and spasm; R51.9 Headache, unspecified; I10 Essential (primary) hypertension; F41.9 Anxiety disorder, unspecified
CPT/HCPCS: 70450; 74021; 80047; 80076; 80307; 81001; 82550; 82553; 83690; 83735; 85025; 96360; 99284; G0480

== ENCOUNTER → 2020-07-14 | Outpatient (CLI) | payer OTHER ==
[2020-07-14 14:57] LABS: FREE THYROXINE INDEX 1.9 % (1.4-3.8); THYROID STIMULATING HORMONE 0.309 uIU/ML (0.358-3.740); THYROXINE (T4) 6.3 UG/DL (4.5-12.0)
[2020-07-14 14:58] LABS: TOTAL T3 110.1 NG/DL (60.0-181.0)
[2020-07-15 11:08] LABS: SSA SJOGRENS A <0.2 AI (0.0-0.9); SSB SJOGRENS B <0.2 AI (0.0-0.9)
== END ==
LOC: M LAB 13:16
PROVIDERS: ATTEND Ophthalmology
DX: H16.223 Keratoconjunctivitis sicca, not specified as Sjogren's, bilateral (principal)

== ENCOUNTER 2020-08-01 21:37 | Emergency (ER) | payer OTHER ==
[~2020-08-01] VITALS: Ht 170.2 cm; Wt 73.7 kg
[2020-08-01 21:38] VITALS: BP 152/78
== END 2020-08-01 23:15 | disposition left against medical advice (07) ==
LOC: M ED 21:37
DX: Z53.21 Procedure and treatment not carried out due to patient leaving prior to being seen by health care provider (principal)

== ENCOUNTER → 2020-08-19 | Outpatient (CLI) | payer OTHER, MEDICAID ==
[2020-08-19 14:39] LABS: BASO % 0.5 % (0.0-1.0); EOS # 0.1 10^3/uL (0.0-0.5); EOS % 1.3 % (0.0-3.0); HEMATOCRIT 48.6 % (42.0-52.0); HEMOGLOBIN 15.8 g/dl (13.5-17.5); LYMPH # 1.4 10^3/uL (1.5-5.0); LYMPH % 24.9 % (24.0-44.0); MEAN CORPUSCULAR HEMOGLOBIN 28.6 pg (27.0-33.0); MEAN CORPUSCULAR HGB CONC 32.5 g/dl (32.0-36.5); MONO # 0.4 10^3/uL (0.0-0.8); MONO % 6.7 % (2.0-8.0); NEUTROPHILS # 3.6 10^3/uL (1.5-8.5); NEUTROPHILS % 66.2 % (36.0-66.0); PLATELET COUNT, AUTOMATED 259 10^3/uL (150-450); RED BLOOD COUNT 5.52 10^6/uL (4.30-6.10); WHITE BLOOD COUNT 5.5 10^3/uL (4.0-10.0)
[2020-08-19 15:46] LABS: ALBUMIN 4.5 GM/DL (3.2-5.2); ALT/SGPT 34 U/L (12-78); BILIRUBIN,TOTAL 0.4 MG/DL (0.2-1.0); BLOOD UREA NITROGEN 12 MG/DL (7-18); CALCIUM LEVEL 9.5 MG/DL (8.5-10.1); CARBON DIOXIDE LEVEL 28 MEQ/L (21-32); CHLORIDE LEVEL 102 MEQ/L (98-107); CREATININE FOR GFR 1.04 MG/DL (0.70-1.30); FREE T4 1.14 NG/DL (0.76-1.46); GLOMERULAR FILTRATION RATE > 60.0 (>60); GLUCOSE, FASTING 77 MG/DL (70-100); POTASSIUM SERUM 4.3 MEQ/L (3.5-5.1); SODIUM LEVEL 136 MEQ/L (136-145); THYROID STIMULATING HORMONE 0.389 uIU/ML (0.358-3.740); TOTAL 25(OH) VITAMIN D 12.3 NG/ML (30.0-100.0); TOTAL PROTEIN 8.6 GM/DL (6.4-8.2)
== END ==
LOC: M LAB 12:57
PROVIDERS: ATTEND Family Medicine
DX: I10 Essential (primary) hypertension (principal)

== ENCOUNTER → 2020-09-03 | Outpatient (CLI) | payer OTHER ==
--- NOTE | 2020-09-03 11:30 | REP ---
INDICATION: HTN. COMPARISON: None. TECHNIQUE: Urinary tract sonography with renal artery Doppler assessment. FINDINGS: Scanning at the level of the urinary bladder shows no abnormality. Renal cortical echogenicity pattern is normal bilaterally and contours are smooth. There is no evidence of hydronephrosis, cyst, mass, or calculus in either kidney. The right kidney measures 10.9 x 5.6 x 5.8 cm. Left renal dimensions are 10.5 x 6.5 x 6.3 cm. Doppler interrogation: Peak systolic flow velocity in the abdominal aorta at the level of the main renal arteries is normal recorded at 145.5 centimeters/second. Peak systolic flow velocity in the right main renal artery is 114.7 centimeters/second and that recorded in the left renal artery is 91.1 centimeters/second. These values are normal. Renal to aortic flow velocity ratios are therefore normal at 0.8 on the right and 0.6 on the left. Resistive indices and acceleration times are measured in the intralobar arteries of the upper, mid, and lower pole of each kidney. These values are normal bilaterally. IMPRESSION: Normal urinary tract sonography. There is no renal Doppler evidence to suggest renal artery stenosis. <Electronically signed by Benigno Osei > 09/03/20 1120
== END ==
LOC: M RAD 09:54
PROVIDERS: ATTEND Family Medicine
DX: I10 Essential (primary) hypertension (principal)